=== PATIENT | male | born 1960 | race Asian ===

== ENCOUNTER 2022-10-09 13:26 | Outpatient (CLI) | payer BC, MEDICAID, SELFPAY ==
[2022-10-09 15:04] LABS: PSA Diagnostic* 0.58 ng/mL (0.10-4.00)
[2022-10-11 10:54] LABS: Testosterone, Adult Male 296 ng/dL (300-720)
== END 2022-10-09 13:27 | disposition home or self-care (01) ==
PROVIDERS: Visit Provider Nurse Practitioner
DX: C61 Malignant neoplasm of prostate (principal)
CPT/HCPCS: 36415; 84153; 84403

== ENCOUNTER 2022-11-17 14:47 | Outpatient (CLI) | payer BC, MEDICAID, SELFPAY ==
--- NOTE | 2022-11-17 15:00 | CRLHL7_ITS ---
For Patients: As a result of the Century Cures Act, medical imaging exams and procedure reports are released immediately into your electronic medical record. You may view this report before your referring provider. If you have questions, please contact your health care provider. INDICATION: SCROTAL SWELLING, PROSTATE CA TREATMENT COMPARISON: none TECHNIQUE: Acosta scale imaging was performed of the scrotum. In addition color Doppler and spectral Doppler analysis was performed of the testes. FINDINGS: The testes demonstrate normal arterial and venous blood flow on color Doppler and spectral Doppler analysis. Incidental cyst within the left testicle measuring 2 millimeters. The testes have uniform echogenicity with no evidence of a suspicious mass or area of inflammation. The right testis measures 3.3 x 1.6 x 2.2 cm in size and the left testis measures 3.7 x 1.9 x 2.6 cm. The epididymis appears normal bilaterally. Moderate left hydrocele. IMPRESSION: Moderate left hydrocele. No testicular mass. Dictated by Yahir Max MD @ 11/18/2022 11:23:49 AM (Electronically Signed)
--- NOTE | 2022-11-17 15:45 | CRLHL7_ITS ---
For Patients: As a result of the Cures Act, medical imaging exams and procedure reports are released immediately into your electronic medical record. You may view this report before your referring provider. If you have questions, please contact your health care provider. Indication: LT GROIN SWELLING, SCROTAL SWELLING, PROSTATE CA TREATMENT Technique: Grayscale ultrasound of the left inguinal region performed. Comparison: None Findings: Targeted sonogram to the left inguinal soft tissues demonstrates no evidence of mass, adenopathy, cyst or hernia. Impression: Negative sonogram left inguinal soft tissues. Dictated by Yahir Max MD @ 11/18/2022 11:04:07 AM (Electronically Signed)
--- NOTE | 2022-11-17 16:00 | CRLHL7_ITS ---
For Patients: As a result of the Cures Act, medical imaging exams and procedure reports are released immediately into your electronic medical record. You may view this report before your referring provider. If you have questions, please contact your health care provider. Indication: SCROTAL SWELLING, RT Intermittent GROIN PAIN, PROSTATE CA TREATMENT Technique: Grayscale ultrasound right inguinal soft tissues. Comparison: None Findings: Normal right inguinal soft tissues without fluid collection, cyst, mass or adenopathy. No hernia. Impression: Negative sonogram right inguinal soft tissues. Dictated by Yahir Max MD @ 11/18/2022 11:04:58 AM (Electronically Signed)
== END 2022-11-17 14:48 | disposition home or self-care (01) ==
PROVIDERS: Visit Provider Physician Assistant
DX: N50.89 Other specified disorders of the male genital organs (principal); N43.3 Hydrocele, unspecified
CPT/HCPCS: 76870; 76882; 93976

== ENCOUNTER 2022-12-30 15:45 | Outpatient (REF) | payer BC, MEDICAID, SELFPAY ==
[2022-12-30 16:33] LABS: Chloride* 108 mmol/L (96-114)
[2022-12-30 16:34] LABS: Potassium* 3.8 mmol/L (3.6-5.1); Sodium* 141 mmol/L (135-149)
[2022-12-30 16:37] LABS: Alanine Aminotransferase* 31 U/L (4-50); Alkaline Phosphatase* 62 U/L (40-150); Aspartate Amino Transferase* 27 U/L (12-35); Bilirubin Total* 0.6 mg/dL (0.1-1.5); Blood Urea Nitrogen* 15 mg/dL (7-30); Carbon Dioxide* 28 mmol/L (20-32); Estimated Glomerular Filt Rate 86 ml/min; Glucose* 101 mg/dL (60-115); Total Protein* 7.4 g/dL (6.0-8.3)
[2022-12-30 16:38] LABS: Calcium* 8.7 mg/dL (8.4-10.6)
== END 2022-12-30 15:46 | disposition home or self-care (01) ==
LOC: NPINS 15:45
PROVIDERS: Visit Provider Physician Assistant
DX: R33.9 Retention of urine, unspecified (principal)
CPT/HCPCS: 80053; 81001; 87086

== ENCOUNTER 2023-01-13 10:00 | Outpatient (RCR) | payer BC, MEDICAID, SELFPAY ==
--- NOTE | 2022-10-15 14:02 | URNOTE ---
Request received for authorization for Leuprolide acetate (Eligard)? (J9217). Pt carries [facility] and [facility] [place] [facility], Prior authorization is not required from [facility] Injectable Drug Authorization List. BC required PA and is approved Ref #[id number] for 4 visits from 10/20/2022 to 10/20/2023, spoke with Rep. Hardwick.
[2022-10-20] MEDS: LEUPROLIDE ACETATE 22.5 MG (SQ) SYRINGE SUBCUT (15:47)
[2022-10-20 15:57] VITALS: BP 155/94; PULSE 68; RESP 18; TEMP 36.9; O2SAT 97
[2023-01-13 10:38] VITALS: BP 124/75; PULSE 71; RESP 16; TEMP 36.7; O2SAT 96
[2023-01-13] MEDS: LEUPROLIDE ACETATE 22.5 MG (SQ) SYRINGE SUBCUT (11:18)
[2023-01-13 12:03] LABS: PSA Diagnostic* < 0.06 ng/mL (0.10-4.00)
== END 2023-04-18 23:59 | disposition home or self-care (01) ==
LOC: CCIC 10:00
PROVIDERS: Visit Provider Clinical Nurse Specialist
DX: C61 Malignant neoplasm of prostate (principal); Z79.818 Long term (current) use of other agents affecting estrogen receptors and estrogen levels
CPT/HCPCS: 36415; 84153; 96401; J9217